=== PATIENT | female | born 1990 | race Caucasian/White ===

== ENCOUNTER 2019-08-17 16:11 | Observation (INO) ==
[2019-08-17] MEDS ORDERED: Ziprasidone 20 MG in Water for inj. (sterile) 1 ML IM ONE (16:38)
[2019-08-17] MEDS ORDERED: *HR* LORazepam 1 MG TABLET PO ONE (16:56)
[2019-08-17 17:01] LABS: Basophils % 0.3 %; Eosinophils % 0.2 %; Hematocrit 36.9 % (35.3-44.9); Hemoglobin 12.5 g/dL (11.5-15.4); Immature Granulocytes % 0.5 % (0-4); Lymphocytes # 2.7 K/mcL (0.6-4.6); Lymphocytes % 22.8 %; Mean Corpuscular HGB Conc 33.9 g/dL (31.6-35.5); Mean Corpuscular Hemoglobin 32.4 pg (28.0-33.3); Mean Corpuscular Volume 95.6 fL (83.0-100.0); Mean Platelet Volume 9.2 fL (9.4-12.4); Monocytes # 0.9 K/mcL (0.0-1.3); Monocytes % 7.8 %; Platelet Count 345 K/mcL (140-400); Red Blood Count 3.86 M/mcL (3.82-4.97); Red Cell Distribution Width 12.1 % (11.5-14.5); Segmented Neutrophils % 68.4 %; White Blood Count 11.7 K/mcL (4.3-11.1)
[2019-08-17 17:25] LABS: Acetaminophen < 10 mcg/mL (10-20); BUN/Creatinine Ratio 29 (6-26); Blood Urea Nitrogen 19 mg/dL (6-20); Calcium 8.9 mg/dL (8.6-10.3); Carbon Dioxide 27 mEq/L (23-29); Chloride 101 mEq/L (98-107); Ethanol < 10 mg/dL (Less than 10); Glucose 110 mg/dL (70-105); Osmolality,Calculated 287 (280-300); Potassium 3.1 mEq/L (3.5-5.1); Salicylate < 2.5 mg/dL (15.0-30.0); Sodium 137 mEq/L (136-145); eGFR For African Americans > 60 (> 60); eGFR For Non-African Americans > 60 (> 60)
[2019-08-17 18:44] LABS: Bilirubin,Urine Small (Negative); Blood,Urine Small (Negative); Color,Urine Yellow (Yellow); Glucose,Urine (UA) Normal (Normal); Ketones,Urine Trace mg/dL (Negative); Leukocyte Esterase,Urine Trace (Negative); Nitrite,Urine Positive (Negative); Protein,Urine Trace mg/dL (Neg-Trace); Urobilinogen,Urine Normal (Normal)
[2019-08-17 18:46] LABS: Bacteria,Urine Many per hpf (None-Few); Squamous Epithelial Cell,Urine Many per lpf (None-Few); WBC,Urine 0-3 per hpf (0-3)
[2019-08-17 18:50] LABS: Clarity,Urine Hazy (Clear)
[2019-08-17 18:55] LABS: Amphetamine Screen,Urine Positive ng/mL (Cutoff=1000); Barbiturate Screen,Urine Negative ng/mL (Cutoff=200); Benzodiazepines Screen,Urine Negative ng/mL (Cutoff=200); Cannabinoid Screen,Urine Negative ng/mL (Cutoff = 50); Cocaine Screen,Urine Negative ng/mL (Cutoff= 300); Opiate Screen,Urine Negative ng/mL (Cutoff=300); Phencyclidine Screen,Urine Negative ng/mL (Cutoff=25)
[2019-08-18] MEDS ORDERED: *HR* LORazepam 1 MG TABLET PO ONE (17:31)
[2019-08-18] MEDS ORDERED: Ziprasidone 20 MG in Water for inj. (sterile) 1 ML IM ONE (17:31)
[2019-08-19] MEDS ORDERED: Nicotine 21 MG PATCH.TD24 TD SCH (11:15)
[2019-08-19] MEDS ORDERED: Acetaminophen 325 MG TABLET PO PRN (12:05)
[2019-08-19] MEDS ORDERED: Haloperidol Lactate 5 MG/ML VIAL IM PRN (12:05)
[2019-08-19] MEDS ORDERED: *HR* LORazepam 1 MG TABLET PO PRN (12:05)
[2019-08-19] MEDS ORDERED: MOM Conc 10 ML UD.LIQ PO PRN (12:05)
[2019-08-19] MEDS ORDERED: hydrOXYzine pamoate 25 MG CAPSULE PO PRN (12:05)
[2019-08-19] MEDS ORDERED: *HR* LORazepam 2 MG/ML VIAL IM PRN (12:05)
[2019-08-19] MEDS ORDERED: traZODone 50 MG TABLET PO PRN (12:05)
[2019-08-19] MEDS ORDERED: Mag Hydrox/Al Hydrox/Simeth 30 ML UDC PO PRN (12:05)
[2019-08-19 20:17] VITALS: BP 123/80
[2019-08-20] MEDS ORDERED: Nicotine 21 MG PATCH.TD24 TD SCH (09:00)
[2019-08-20] MEDS ORDERED: OLANZapine 5 MG TAB.RAPDIS PO SCH (10:00)
== END 2019-08-20 12:56 | disposition home or self-care (01) ==
LOC: EDBD → MERGE 16:11 → EMEROOARM 16:11 → 1ANU 16:11 → INTOOBSV 08-19 11:22 → 1ANU 08-19 11:46
PROVIDERS: ADMIT Psychiatry & Neurology Psychiatry; ATTEND Psychiatry & Neurology Psychiatry